=== PATIENT | male | born 1985 | race Caucasian/White ===

== ENCOUNTER → 2017-05-02 15:19 | Outpatient (CLI) | payer OTHER, SELFPAY ==
--- NOTE | 2017-05-02 15:25 | XR_ITS ---
XR knee RT 3V HISTORY: ITS.REASON: right knee pain ORDERING PHYSICIAN: DEMARIO Erazo PATIENT AGE: 32 years COMPARISON: None FINDINGS: No fracture or dislocation. No lytic or blastic change. Normal mineralization. No significant arthritic changes evident. No other significant findings IMPRESSION: Negative Knee
== END ==
PROVIDERS: PCP Physician Assistant; Visit Provider Physician Assistant
DX: M25.561 Pain in right knee (principal)
CPT/HCPCS: 73562

== ENCOUNTER → 2017-06-20 12:47 | Outpatient (CLI) | payer OTHER, SELFPAY ==
--- NOTE | 2017-06-20 13:01 | XR_ITS ---
XR orbit bilateral min 4V Ordering Physician: Steve Prabhakar MD Patient Age: 32 years: Male HISTORY: ITS.REASON: MRI CLEARANCE Works with metal TECHNIQUE: Initial Garcia' view looking up and down followed by bilateral oblique view orbits and lateral view face/orbits COMPARISON :None available at head or face FINDINGS There is a small up to 1.2 mm... Of metal, radiopaque metallic foreign body seen projected consistently over the left orbit at the medial aspect of the orbit. Likely along the medial aspect of the globe. It is seen on all images. Because of this MRI was canceled for today. . May want to consider a CT of orbits/or CT sinuses facial bones to optimally localize this metallic foreign body. I suspect it is in the orbit medial itself, but CT could precisely localize and exclude any residing within the eyelid or elsewhere. I mention this as I understand the patient was rescheduled for a a CT arthrogram of the knee which is certainly less optimal than MRI in evaluating the knee overall. If it was not actually within the sclera or orbit itself MR could still be an option although unlikely IMPRESSION Small princess of metallic body material is seen projected over the medial left orbit likely along the medial aspect of the globe. Note comments in text
== END ==
PROVIDERS: Family Provider Family Medicine; PCP Physician Assistant; Visit Provider Orthopaedic Surgery
DX: M25.561 Pain in right knee (principal)
CPT/HCPCS: 70200

== ENCOUNTER → 2017-06-27 13:17 | Outpatient (CLI) | payer OTHER, SELFPAY ==
--- NOTE | 2017-06-27 13:53 | FL_ITS ---
FL fluoroscopy <1hr Right knee arthrogram CLINICAL INDICATION: Medial right knee pain. Patient unable to have an MRI due to having metal in his eye ITS.REASON: RT KNEE PAIN ORDERING PHYSICIAN: Steve Prabhakar MD PATIENT AGE: 32 years COMPARISON: None TECHNIQUE: Following obtaining informed consent and using fluoroscopic guidance with aseptic technique and local lesion with more percent buffered lidocaine, a 25-gauge needle was inserted into the knee joint by the lateral retropatellar approach. 20 mL's of a mixture of Isovue 300, lidocaine, and normal saline was injected. Patient tolerated the procedure well without evidence of decompensation. Patient then went to the CT suite where CT arthrogram was performed. IMPRESSION: Uneventful fluoroscopy-guided right knee arthrogram
--- NOTE | 2017-06-27 13:55 | CT_ITS ---
CT knee RT w con CT arthrography INDICATION: Medial right knee pain ITS.REASON: RT KNEE PAIN ORDERING PHYSICIAN: Steve Prabhakar MD PATIENT AGE: 32 years COMPARISON: Arthrogram from the same day TECHNIQUE: Contrast was injected into the right knee joint under fluoroscopy. Please see arthrogram report for description. Post arthrogram images are obtained . Sagittal and coronal reformatted images are reviewed as well. The patient was unable to have an MRI due to metal within the orbits FINDINGS: The cruciate ligaments appear intact. There is no evidence of contrast within a meniscal tear. The collateral ligaments are not well delineated with this technique. There are mild osteoarthritic changes with very slight decrease in joint space medially minimal osteosclerosis of the medial tibial plateau. The patellar tendon and quadriceps tendon appear intact. There is an accessory center of ossification at the tibial spine. IMPRESSION: 1. No evidence of ligamentous or meniscal tear. 2. Minimal osteoarthritic change of the medial compartment.
== END ==
PROVIDERS: Family Provider Family Medicine; PCP Physician Assistant; Visit Provider Orthopaedic Surgery
DX: M25.561 Pain in right knee (principal)
CPT/HCPCS: 73701; 76000; Q9967

== ENCOUNTER → 2018-09-28 12:06 | Outpatient (CLI) | payer OTHER, SELFPAY ==
--- NOTE | 2018-09-28 12:17 | XR_ITS ---
XR knee RT 4V HISTORY: ITS.REASON: right knee pain ORDERING PHYSICIAN: Steve Prabhaakr MD PATIENT AGE: 33 years COMPARISON: 05/02/2017 FINDINGS: No fracture or dislocation. No lytic or blastic change. Normal mineralization. No significant arthritic changes evident. No other significant findings IMPRESSION: Negative Knee
== END ==
PROVIDERS: PCP Family Medicine; Visit Provider Orthopaedic Surgery
DX: M17.11 Unilateral primary osteoarthritis, right knee (principal)
CPT/HCPCS: 73564

== ENCOUNTER → 2019-02-19 11:30 | Outpatient (CLI) | payer SELFPAY ==
--- NOTE | 2019-02-19 11:34 | XR_ITS ---
PROCEDURE: XR KNEE LT 4V CLINICAL INDICATION: left knee pain Posttraumatic pain COMPARISON: [id number] XR knee RT 3V from 05/02/2017 FINDINGS: No fracture or dislocation. No lytic or blastic change. There is normal mineralization. The joint spaces are well-preserved. No significant degenerative/arthritic changes. No erosive changes evident. Other findings:None. IMPRESSION: No acute findings. Dictated by: Kervin Barone MD 02/19/2019 12:34 Electronically signed by Kervin Barone MD in [place] 02/19/2019 12:34
--- NOTE | 2019-02-19 11:34 | XR_ITS ---
PROCEDURE: XR FEMUR LT 2V CLINICAL INDICATION: left leg pain COMPARISON: No exams were available for comparison FINDINGS: No fracture or dislocation. No lytic or blastic change. There is normal mineralization. Minimal osteoarthritic changes of the hips Other findings:None. IMPRESSION: No acute finding. Mild osteoarthritis of the hip Dictated by: Kervin Baroen MD 02/19/2019 12:34 Electronically signed by Kervin Barone MD in [place] 02/19/2019 12:34
== END ==
PROVIDERS: PCP Family Medicine; Visit Provider Orthopaedic Surgery
DX: M25.562 Pain in left knee (principal); M79.605 Pain in left leg
CPT/HCPCS: 73552; 73564

== ENCOUNTER → 2020-07-09 09:01 | Outpatient (CLI) | payer OTHER, SELFPAY ==
--- NOTE | 2020-07-09 09:12 | US_ITS ---
PROCEDURE: US EXTREMITY RT LIMITED CLINICAL INDICATION: RT AXILLA MASS COMPARISON: No exams were available for comparison FINDINGS: There is an irregular hypoechoic collection in the right axillary region corresponding to the palpable abnormality. Low level echoes are present within the lesion. No significant posterior shadowing. This area measures approximately 3 x 1.4 cm and is suspicious for an abscess. There are small nodes in the axilla as well. IMPRESSION: Irregular hypoechoic collection in the right axilla suspicious for an abscess. Suggest following till clear Dictated by: Kervin Barone MD 07/09/2020 09:46 Kervin Barone MD in [place] 07/09/2020 09:46
== END ==
PROVIDERS: PCP Family Medicine; Visit Provider Nurse Practitioner Family
DX: R22.31 Localized swelling, mass and lump, right upper limb (principal)
CPT/HCPCS: 76882

== ENCOUNTER → 2020-12-16 20:18 | Outpatient (CLI) | payer OTHER, SELFPAY | PROVIDERS: Visit Provider Nurse Practitioner Family | DX: Z20.822 Contact with and (suspected) exposure to COVID-19 (principal) | CPT/HCPCS: U0003 ==

== ENCOUNTER → 2021-04-14 09:12 | Outpatient (CLI) | payer OTHER, SELFPAY ==
--- NOTE | 2021-04-14 09:15 | XR_ITS ---
PROCEDURE: XR KNEE RT 4V CLINICAL INDICATION: right knee pain COMPARISON: CR [id number] XR knee RT 3V from 05/02/2017 CR XR KNEE LT 4V from 02/19/2019 FINDINGS: No fracture or dislocation. No lytic or blastic change. There is normal mineralization. The joint spaces are well-preserved. No significant degenerative/arthritic changes. No erosive changes evident. Other findings:None. IMPRESSION: No acute findings. Dictated by: Kervin Barone MD 04/14/2021 17:28 Kervin Barone MD in [place] 04/14/2021 17:28
== END ==
PROVIDERS: PCP Internal Medicine Adolescent Medicine; Visit Provider Orthopaedic Surgery
DX: M25.561 Pain in right knee (principal)
CPT/HCPCS: 73564

== ENCOUNTER → 2021-04-23 10:28 | Outpatient (CLI) | payer OTHER, SELFPAY ==
[2021-04-23 11:49] LABS: Alanine Aminotransferase 21 U/L (12-78); Albumin Level 4.7 g/dl (3.5-5.0); Albumin/Globulin Ratio 1.7 (1.1-1.8); Alkaline Phosphatase 117 U/L (38-126); Anion Gap 13.4 mEq/L (5-15); Aspartate Amino Transferase 25 U/L (17-59); Bilirubin,Total 0.5 mg/dl (0.2-1.3); Blood Urea Nitrogen 14 mg/dl (9-20); Calcium 10.4 mg/dl (8.4-10.2); Carbon Dioxide 29 mmol/L (22.0-30.0); Chloride 102 mmol/L (98-107); Chol/HDL Ratio 6.2 (1-3.5); Cholesterol 273 mg/dl (140-200); Estimated Glomerular Filt Rate 95 ml/min (>60); GFR (African American) 116 ML/MIN (>60); Globulin 2.8 g/dL (1.3-3.2); Glucose 87 mg/dl (74-100); HDL Cholesterol 44 mg/dl (40-60); Potassium 5.4 mmoL/L (3.5-5.1); Sodium 139 mmol/L (136-145); Total Protein,Serum 7.5 g/dl (6.3-8.2); Triglycerides 168 mg/dl (30-150); VLDL Cholesterol 34 mg/dL (0-40)
== END ==
PROVIDERS: PCP Internal Medicine Adolescent Medicine; Visit Provider Nurse Practitioner Family
DX: Z00.00 Encounter for general adult medical examination without abnormal findings (principal); E78.01 Familial hypercholesterolemia
CPT/HCPCS: 36415; 80053; 80061

== ENCOUNTER → 2021-05-05 10:57 | Outpatient (CLI) | payer OTHER, SELFPAY ==
[2021-05-05 11:33] LABS: Basophils # 0.2 K/mm3 (0-0.2); Eosinophils # 0.2 K/mm3 (0.0-0.4); Hemoglobin 17.3 g/dL (14.1-18.0); Lymphocytes # 2.5 K/mm3 (0.7-4.5); Lymphocytes % 15.8 % (10-50); Mean Corpuscular HGB Conc 33.4 g/dL (31.8-35.4); Mean Corpuscular Hemoglobin 29.8 pg (27.0-31.2); Mean Corpuscular Volume 89.3 fl (80-94); Mean Platelet Volume 8.8 fl (7.4-10.4); Monocytes # 0.6 K/mm3 (0.1-1.0); Monocytes % 3.9 % (1.7-9.3); Neutrophils # 12.2 K/mm3 (1.8-7.8); Neutrophils % 78.2 % (37.0-80.0); Platelet Count 264 K/mm3 (142-424); Red Blood Count 5.82 M/mm3 (4.60-6.20); Red Cell Distribution Width 14.1 % (11.5-17.5); White Blood Count 15.6 K/mm3 (4.8-10.8)
[2021-05-05 11:36] LABS: MANUAL DIFFERENTIAL MANUAL DIFFERENTIAL (MANUAL DIFF)
[2021-05-05 11:53] LABS: Eosinophils % 1 % (0-3); Lymphocytes % 15 % (10-50); Monocytes % 2 % (2-9); Neutrophils % 82 % (42-76); Platelet Estimate Normal; RBC Morphology Normal; Total Cells Counted 100
[2021-05-05 12:11] LABS: Chloride 103 mmol/L (98-107); Potassium 5.1 mmoL/L (3.5-5.1); Sodium 139 mmol/L (136-145)
[2021-05-05 12:14] LABS: Anion Gap 14.1 mEq/L (5-15); Blood Urea Nitrogen 16 mg/dl (9-20); Calcium 9.7 mg/dl (8.4-10.2); Carbon Dioxide 27 mmol/L (22.0-30.0); Estimated Glomerular Filt Rate 109 ml/min (>60); GFR (African American) 132 ML/MIN (>60); Glucose 89 mg/dl (74-100)
== END ==
PROVIDERS: PCP Internal Medicine Adolescent Medicine; Visit Provider Surgery
DX: Z01.812 Encounter for preprocedural laboratory examination (principal); Z11.52 Encounter for screening for COVID-19; L73.2 Hidradenitis suppurativa
CPT/HCPCS: 36415; 80048; 85007; 85025; C9803; U0003; U0005

== ENCOUNTER 2021-05-07 07:46 | Day surgery (SDC) | payer OTHER, SELFPAY ==
[2021-05-04 12:58] VITALS: BMI 30.4
[2021-05-07] VITALS (9 sets, daily range): BP systolic 134–155; BP diastolic 75–96; PULSE 74–86; RESP 12–18; TEMP 36.3–37.2; O2SAT 95–98
--- NOTE | 2021-05-07 08:26 | P.PN_ITS ---
[facility] Anesthesia Checklist - Patient Identification Patient Identification: Arm Band, Verbal (Name & ) - Structural Data Admitted From: Home Planned Operative Procedure/s: Right Axillary Hydradentitis Excision Consent for Planned Operative Procedure(s) Verified: Yes Verified Documents: Surgical Consent - NPO Status Verified Time NPO: 00:00 - Chart Verification Results Verified: CBC, BMP - Additional verifications Anesthesia Reactions: No Hx Blood Transfusions: No Blood Transfusion Reaction: No - Airway Assessment C-Spine Mobility Assessed: Yes TMJ Mobility Assessed: Yes Dentition: Good Dentition - Neurological Assessment Level of Consciousness: Awake, Alert, Appropriate - Anesthesia Plan Anesthesia Risk discussed: Yes ASA Class: II Anesthesia Type: General [facility] History Medical History: Reports:: Hyperlipidemia, Hypertension Denies:: Cancer, Diabetes Mellitus Type 1, Diabetes Mellitus Type 2, Internal Pacemaker, MRSA, Seizures *Have you ever received a pneumonia vaccine?: No *Have you received a flu vaccine this season?: No Other Medical History: Denies: Blood Transfusion Reaction Anesthesia experience/problems:: none Other Surgeries: Yes: No Previous Surgery, Appendectomy. No: Pacemaker Amputation: No Fractures: No - *Social History Last grade of school completed: High school graduate Smoking Status: Current every day smoker Tobacco Type: cigarettes # Packs/Day (cigarettes): 1 Alcohol Intake: never Alcohol Intake Frequency:: holidays/special occasions only Substance Use Type: denies use *Occupational Status:: other Housing: house Household Members: family *Travel in the last 8 weeks: None Family Hx:: No significant family history
--- NOTE | 2021-05-07 10:04 | HMH.OPNOTE ---
Date of procedure: 05/07/21 Pre-op Diagnosis:: Right axillary hidradenitis Post-op Diagnosis:: Sign Procedure performed:: Excision of focus right axillary hidradenitis with recent infection (2 cm) Surgeon:: Chidi Guthrie MD SOLUTION DESIGNER:: Armando Trent Anesthesia: LMA Estimated blood loss (mL): 10 Operative findings:: Inflamed right axillary hidradenitis excised. Dissection taken to the deep subcutaneous tissue. Operative note:: After informed consent was obtained the patient was taken to the operating room and placed in the supine position. General anesthesia with laryngeal mask airway was achieved. His right axilla was prepped and draped in a sterile fashion. After infiltration local anesthetic an elliptical incision was made around the lesion. The deep subcutaneous tissue was dissected with electrocautery to encompass the palpable indurated specimen. The lesion was excised in toto for pathologic evaluation. Electrocautery was utilized to achieve hemostasis. Skin was reapproximated with 4-0 nylon. Dressings were applied and the patient was transferred to recovery in stable condition. Condition: stable Disposition: PACU Specimens:: Right axillary hidradenitis Complications:: No immediate
--- NOTE | 2021-05-07 10:09 | P.PN_ITS ---
[facility] Anesthesia Record Part I Intake, IV Amount: 600 Estimated blood loss (mL): 5 Urine output (mL): 0 Blood Pressure: 136/78 SaO2: 97 Pulse Rate: 74 Respiratory Rate: 12 Temperature: 97.9 F Patient is:: Drowsy, Oral/Nasal airway Stable to PACU at:: 10:07
--- NOTE | 2021-05-08 10:09 | P.PN_ITS ---
[facility] Anesthesia Record Part II Discharge Time: 10:37 Destination: Surgical Day Care (OP Surgery) PACU nurse assessment reviewed?: Yes Patient Condition:: Good Anesthesia Complications:: None Swallowing reflex intact?: Yes Cyanosis?: No Blood Pressure: 144/90 Pulse Rate: 78 Temperature: 97.5 F Mental Status: Alert & Oriented Pain level:: 0 Nausea and/or vomitting:: None Intake, IV Amount: 0
[2021-05-08 10:11] VITALS: BP 144/90; PULSE 78; TEMP 36.4
== END 2021-05-07 11:08 | disposition home or self-care (01) ==
LOC: OR 07:48
PROVIDERS: PCP Internal Medicine Adolescent Medicine; Visit Provider Surgery
PROC: (CPT 11450; principal; 2021-05-07 09:15)
DX: L73.2 Hidradenitis suppurativa (principal); E78.5 Hyperlipidemia, unspecified; I10 Essential (primary) hypertension; Z72.0 Tobacco use; Z79.899 Other long term (current) drug therapy
CPT/HCPCS: 11450; 96374; J0131

== ENCOUNTER 2021-11-22 19:14 | Emergency (ER) | payer OTHER, SELFPAY ==
[2021-11-22 19:16] VITALS: BP 122/68; PULSE 113; RESP 18; O2SAT 98; BMI 29.2
[2021-11-22 20:00] VITALS: BP 122/68; PULSE 99; O2SAT 98
--- NOTE | 2021-11-22 20:05 | HMH.EDGENADL ---
ED Disposition <Reinaldo Cabral - Last Filed: 11/22/21 20:13> Condition on Discharge: Good - Critical Care Critical Care Time: No <Beba Ivory - Last Filed: 11/22/21 21:38> Clinical Impression: Cellulitis Qualifiers: Site of cellulitis: extremity Site of cellulitis of extremity: lower extremity Laterality: left Qualified Code(s): L03.116 - Cellulitis of left lower limb Disposition: Home, Self-Care Instructions: Cellulitis, DI for Fever (Symptom) -- Adult Prescriptions: Sulfamethoxazole/Trimethoprim [Bactrim DS tablet] 2 each PO BID 10 Days #40 tab Transmission Status: Pending to [id number] Referrals: Austin Kahn MD [Primary Care Provider] - Attestation: On 11/22/21, the high probability of a clinically significant, sudden or life threatening deterioration of the following system(s) required my full and direct attention, intervention and personal management. The time I documented below is in addition to time spent performing reported procedures but includes the following listed in this critical care notation. Medical Decision Making - [place] Inquiry Pt receiving controlled substance: No <Reinaldo Cabral - Last Filed: 11/22/21 20:13> - Lab Data Result diagrams: 11/22/21 20:25 11/22/21 20:25 <Beba Ivory - Last Filed: 11/22/21 21:38> Vital Signs: 11/22/21 19:16 Temperature Source Oral Pulse Rate [Right] 113 H Respiratory Rate 18 Blood Pressure [Right Arm] 122/68 Blood Pressure Mean [Right Arm] 86 Blood Pressure Source [Right Arm] Automatic Cuff 02 Sat by Pulse Oximetry 98 Oxygen Delivery Method Room Air - Lab Data Lab Results 11/22/21 20:07: Chlamy pneumoniae PCR Not detected, Adenovirus (PCR) Not detected, B. pertussis DNA (PCR) Not detected, Coronavirus OC43 (PCR) Not detected, Coronavirus HKU1 (PCR) Not detected, Coronavirus 229E (PCR) Not detected, Coronavirus NL63 (PCR) Not detected, Human Metapneumovir PCR Not detected, Influenza A (H1) PCR Not detected, Influ A (H1N1/09) PCR Not detected, Influenza A (H3) PCR Not detected, Influenza Type A (PCR) Not detected, Influenza Type B (PCR) Not detected, M. pneumoniae (PCR) Not detected, Parainfluenza 1 (PCR) Not detected, Parainfluenza 2 (PCR) Not detected, Parainfluenza 3 (PCR) Not detected, Parainfluenza 4 (PCR) Not detected, RSV (PCR) Not detected, Entero/Rhino (PCR) Not detected 11/22/21 20:10: Urine Color Yellow, Urine Appearance Clear, Urine pH 6.0, Ur Specific [place] <= 1.005, Urine Protein Negative, Urine Glucose (UA) Negative, Urine Ketones Negative, Urine Blood Negative, Urine Nitrate Negative, Urine Bilirubin Negative, Urine Urobilinogen 0.2, Ur Leukocyte Esterase Negative, Ur Squamous Epith Cells Occasional 11/22/21 20:25: WBC 17.6 H, RBC 5.19, Hgb 15.6, Hct 47.9, MCV 92.2, MCH 30.0, MCHC 32.6, RDW 13.8, Plt Count 250, MPV 9.4, Neut % (Auto) 80.7 H, Lymph % (Auto) 11.2, [place] % (Auto) 6.2, Eos % (Auto) 1.0, Baso % (Auto) 0.9, Neut # (Auto) 14.2 H, Lymph # (Auto) 2.0, [place] # (Auto) 1.1 H, Eos # (Auto) 0.2, Baso # (Auto) 0.2, Total Counted 100, Neutrophils % (Manual) 81 H, Lymphocytes % (Manual) 14, Monocytes % (Manual) 3, Eosinophils % (Manual) 2, Platelet Estimate Normal, RBC Morphology Normal 11/22/21 20:25: Sodium 138, Potassium 3.3 L, Chloride 109 H, Carbon Dioxide 23, Anion Gap 9.3, BUN 9, Creatinine 1.00, Estimated Creat Clear 157, Estimated GFR 85, Est GFR ( Amer) 102, Glucose 111 H, Calcium 9.2, Total Bilirubin 0.2, AST 33, ALT 24, Alkaline Phosphatase 141 H, C-Reactive Protein 25.6 H, Total Protein 7.3, Albumin 4.2, Globulin 3.1, Albumin/Globulin Ratio 1.4 Orders (Tests/Meds): ED MEDICATIONS Discontinued Medications Generic Name Dose Route Start Last Admin Trade Name Freq PRN Reason Stop Dose Admin Trimethoprim/Sulfamethoxazole 2 each 11/22/21 21:34 Sulfa/Trimethoprim 1 Tablet PO 11/22/21 21:35 ONCE ONE ORDERS Category Date Time Status Blood Culture Stat Micro 11/22/21 20:25 Jenniferi
[2021-11-22 20:16] LABS: Adenovirus,PCR Not Detected (NotDetected); Bordetella Pertussis Not Detected (NotDetected); Chlamydophila Pneumoniae, PCR Not Detected (NotDetected); Coronavirus 229E Not Detected (NotDetected); Coronavirus NL63 Not Detected (NotDetected); Coronavirus OC43 Not Detected (NotDetected); Coronovirus HKU1,PCR Not Detected (NotDetected); Human Metapneumovirus Not Detected (NotDetected); Influenza A, PCR Not Detected (NotDetected); Influenza AH1, 2009 Not Detected (NotDetected); Influenza AH1, PCR Not Detected (NotDetected); Influenza AH3,PCR Not Detected (NotDetected); Influenza B, PCR Not Detected (NotDetected); Mycoplasma Pneumoniae, PCR Not Detected (NotDetected); Parainfluenza 1, PCR Not Detected (NotDetected); Parainfluenza 2, PCR Not Detected (NotDetected); Parainfluenza 3, PCR Not Detected (NotDetected); Parainfluenza 4, PCR Not Detected (NotDetected); Respiratory Syncytial Virus Not Detected (NotDetected); Rhinovirus/Enterovirus Not Detected (NotDetected)
[2021-11-22 20:16] LABS: Appearance,Urine CLEAR (Clear); Bilirubin,Urine Negative (Negative); Blood, Urine Negative (Negative); Color,Urine YELLOW (Yellow); Glucose,Urine (UA) Negative (Negative); Ketones,Urine Negative (Negative); Leukocyte Esterase,Urine Negative (Negative); Microscopic, Urine URINE MICROSCOPIC (MICROSCOPIC); Nitrate,Urine Negative (Negative); Protein,Urine Negative (Negative); Specific Gravity, Urine <= 1.005 (1.005-1.030); Urobilinogen,Urine 0.2 EU/dl (0.2)
--- NOTE | 2021-11-22 20:21 | PC.NURSE ---
Warm blanket provided for comfort
[2021-11-22 20:24] LABS: Squamous Epithelial Cell,Urine Occasional #/hpf (0-5)
[2021-11-22 20:46] LABS: Basophils # 0.2 K/mm3 (0-0.2); Basophils % 0.9 % (0.1-2.0); Eosinophils # 0.2 K/mm3 (0.0-0.4); Hematocrit 47.9 % (42.0-52.0); Hemoglobin 15.6 g/dL (14.1-18.0); Lymphocytes % 11.2 % (10-50); Mean Corpuscular HGB Conc 32.6 g/dL (31.8-35.4); Mean Corpuscular Volume 92.2 fl (80-94); Mean Platelet Volume 9.4 fl (7.4-10.4); Monocytes # 1.1 K/mm3 (0.1-1.0); Monocytes % 6.2 % (1.7-9.3); Neutrophils # 14.2 K/mm3 (1.8-7.8); Neutrophils % 80.7 % (37.0-80.0); Platelet Count 250 K/mm3 (142-424); Red Blood Count 5.19 M/mm3 (4.60-6.20); Red Cell Distribution Width 13.8 % (11.5-17.5); White Blood Count 17.6 K/mm3 (4.8-10.8)
[2021-11-22 20:49] LABS: MANUAL DIFFERENTIAL MANUAL DIFFERENTIAL (MANUAL DIFF)
[2021-11-22 20:50] LABS: Chloride 109 mmol/L (98-107); Sodium 138 mmol/L (136-145)
[2021-11-22 20:51] LABS: Potassium 3.3 mmoL/L (3.5-5.1)
[2021-11-22 20:53] LABS: Alanine Aminotransferase 24 U/L (12-78); Albumin Level 4.2 g/dl (3.5-5.0); Albumin/Globulin Ratio 1.4 (1.1-1.8); Alkaline Phosphatase 141 U/L (38-126); Anion Gap 9.3 mEq/L (5-15); Aspartate Amino Transferase 33 U/L (17-59); Bilirubin,Total 0.2 mg/dl (0.2-1.3); Blood Urea Nitrogen 9 mg/dl (9-20); Carbon Dioxide 23 mmol/L (22.0-30.0); Creatinine Clearance Estimated 157 mL/min (50-200); Estimated Glomerular Filt Rate 85 ml/min (>60); GFR (African American) 102 ML/MIN (>60); Globulin 3.1 g/dL (1.3-3.2); Total Protein,Serum 7.3 g/dl (6.3-8.2)
[2021-11-22 20:54] LABS: Calcium 9.2 mg/dl (8.4-10.2); Glucose 111 mg/dl (74-100)
[2021-11-22 20:59] LABS: C-Reactive Protein 25.6 mg/L (0-4)
[2021-11-22 21:17] LABS: Eosinophils % 2 % (0-3); Lymphocytes % 14 % (10-50); Monocytes % 3 % (2-9); Neutrophils % 81 % (42-76); Total Cells Counted 100
[2021-11-22 21:18] LABS: Platelet Estimate Normal; RBC Morphology Normal
[2021-11-22 21:53] VITALS: BP 129/82; PULSE 88; RESP 16; TEMP 37.4; O2SAT 98
[2021-11-24 22:07] LABS: Neisseria gonorrhoeae, NAA Negative (Negative)
== END 2021-11-22 22:01 | disposition home or self-care (01) ==
PROVIDERS: Emergency Provider Emergency Medicine; PCP Internal Medicine Adolescent Medicine
DX: L03.116 Cellulitis of left lower limb (principal); Z79.899 Other long term (current) drug therapy; E78.5 Hyperlipidemia, unspecified; I10 Essential (primary) hypertension; Z72.0 Tobacco use
CPT/HCPCS: 80053; 81001; 85007; 85025; 86140; 87040; 87486; 87491; 87581; 87591; 87632; 87798; 99283

== ENCOUNTER → 2021-12-04 14:56 | Outpatient (CLI) | payer OTHER, SELFPAY ==
--- NOTE | 2021-12-04 15:01 | CA_ITS ---
FINAL REPORT TECHNIQUE: Color Doppler, duplex Doppler and compression sonography of the left lower extremity deep venous systems was performed. CLINICAL HISTORY: Patient states 2 weeks ago his leg was swollen, red, and he ran a fever as high as 104. They treated him with oral antibiotics with no improvement. He was then advised to go to where he was admitted and received 3 days of IV antibiotics. He was discharged 1 week ago on oral antibiotics. Leg isn't improving and remains red and swollen, particularly in anterior thigh of E. FINDINGS: There is no evidence of deep venous thrombosis from the level of the groin to the calf. The veins are patent and compressible. There are mildly enlarged left inguinal nodes, favor reactive. IMPRESSION: No evidence of deep venous thrombosis left lower extremity. Reviewed, Interpreted and Dictated by aCrmelo Jules III, MD Transcribed by Wanda Juan Authenticated and [facility]
== END ==
PROVIDERS: PCP Internal Medicine Adolescent Medicine; Visit Provider Nurse Practitioner Family
DX: M79.89 Other specified soft tissue disorders (principal)
CPT/HCPCS: 93971

== ENCOUNTER 2024-06-20 14:43 | Outpatient (CLI) | payer OTHER, SELFPAY ==
[2024-06-20] MEDS: ALBUTEROL 0.083% 2.5 MG/3 ML NEB IH (15:24)
== END 2024-06-20 23:59 | disposition home or self-care (01) ==
LOC: RT 14:44
PROVIDERS: PCP Internal Medicine Adolescent Medicine; Visit Provider Internal Medicine Adolescent Medicine
DX: R06.02 Shortness of breath (principal)
CPT/HCPCS: 94060; 94726; 94729; J7613